=== PATIENT | male | born 1965 | race Caucasian/White ===

== ENCOUNTER 2023-01-12 09:13 | Emergency (ER) | payer OTHER ==
[2023-01-12 09:20] VITALS: BP 147/86; PULSE 70; RESP 18; TEMP 98.5; BMI 25.0
[2023-01-12] MEDS ORDERED: ACETAMINOPHEN 1000 MG/100 ML BAG IVPB ONE (10:24)
[2023-01-12 10:28] LABS: HEMATOCRIT 46.7 % (35.4-49); MCH 31.5 pg (25.7-33.7); MCHC 34.2 g/dl (32.0-35.9); MEAN CELL VOLUME 92.3 fl (80-96); MEAN PLT VOLUME 9.5 fl (7.5-11.1); PLATELET COUNT 143.8 10^3/uL (134-434); RBC 5.06 10^6/uL (4.00-5.60); RDW 13.8 % (11.9-15.9); WHITE BLOOD COUNT 9.2 10^3/uL (4.0-10.8)
[2023-01-12 10:36] LABS: PLATELET ESTIMATE ADEQUATE
[2023-01-12] MEDS ORDERED: ACETAMINOPHEN INJECTION 100 ML IVPB ONE (10:50)
[2023-01-12 11:07] LABS: ALBUMIN 4.4 g/dl (3.4-5.0); BILIRUBIN,TOTAL 0.4 mg/dl (0.2-1); CALCIUM 9.6 mg/dl (8.5-10.1); CREATININE 0.6 mg/dl (0.6-1.3); POTASSIUM 4.1 mmol/L (3.5-5.1); TOT PROT 6.6 g/dl (6.4-8.2)
== END 2023-01-12 15:20 | disposition home or self-care (01) ==
LOC: FER 09:13
PROC: 3E033NZ Introduction of Analgesics, Hypnotics, Sedatives into Peripheral Vein, Percutaneous Approach (ICD-10-PCS; principal; 2023-01-12)
DX: M54.2 Cervicalgia (principal)
CPT/HCPCS: 36415; 70491-TC; 80053; 85027; 87651; 96372; 99284-25; Q9967